=== PATIENT | male | born 1985 | race Caucasian/White ===

== ENCOUNTER 2019-04-29 12:30 | Emergency (ER) | payer OTHER ==
--- NOTE | 2019-04-29 13:14 | EDPHYS ---
Physician Documentation [facility] Name: Adam Buchanan Age: 33 yrs Sex: Male : 1985 Arrival Date: 04/29/2019 Time: 12:33 Bed 25 Private MD: ED Physician Ricardo Madrigal HPI: 04/28 13:32 This 33 yrs old Male presents to ER via Ambulatory with complaints of Abscess snw - Mouth/tooth. 13:32 the patient presents with a swollen area of the left submandibular area and lower left snw first molar (#19) and lower left second molar (#18). Description: swollen. Onset: The symptoms/episode began/occurred gradually. Possible cause(s): dental caries. Associated signs and symptoms: Pertinent positives: swelling. Severity of symptoms: At their worst the symptoms were moderate. The patient has not experienced similar symptoms in the past. The patient has not recently seen a physician, appt tomorrow at 0900. Historical: - Allergies: 12:52 PENICILLINS; ca1 12:52 Pepto-Bismol; ca1 12:52 Kaopectate; ca1 - Home Meds: 12:52 None [Active]; ca1 - PMHx: 12:52 None; ca1 - PSHx: 12:52 None; ca1 - Immunization history:: Adult Immunizations up to date, Flu vaccine is not up to date. - Social history:: Smoking status: Patient reports the use of cigarette tobacco products, smokes one-half pack cigarettes per day, Reported history of juuling and/or vaping. ROS: 13:31 Constitutional: Negative for fever, chills, and weight loss, Eyes: Negative for injury, snw pain, redness, and discharge, Neck: Negative for injury, pain, and swelling, Cardiovascular: Negative for chest pain, palpitations, and edema, Respiratory: Negative for shortness of breath, cough, wheezing, and pleuritic chest pain, Abdomen/GI: Negative for abdominal pain, nausea, vomiting, diarrhea, and constipation, Back: Negative for injury and pain, : Negative for injury, bleeding, discharge, and swelling, MS/Extremity: Negative for injury and deformity, Skin: Negative for injury, rash, and discoloration, Neuro: Negative for headache, weakness, numbness, tingling, and seizure. 13:31 ENT: Positive for Teeth pain Exam: 13:21 Constitutional: This is a well developed, well nourished patient who is awake, alert, snw and in no acute distress. Head/Face: Normocephalic, atraumatic. Eyes: Pupils equal round and reactive to light, extra-ocular motions intact. Lids and lashes normal. Conjunctiva and sclera are non-icteric and not injected. Cornea within normal limits. Periorbital areas with no swelling, redness, or edema. Neck: Trachea midline, no thyromegaly or masses palpated, and no cervical lymphadenopathy. Supple, full range of motion without nuchal rigidity, or vertebral point tenderness. No Meningismus. Chest/axilla: Normal chest wall appearance and motion. Nontender with no deformity. No lesions are appreciated. Cardiovascular: Regular rate and rhythm with a normal S1 and S2. No gallops, murmurs, or rubs. Normal PMI, no JVD. No pulse deficits. Respiratory: Lungs have equal breath sounds bilaterally, clear to auscultation and percussion. No rales, rhonchi or wheezes noted. No increased work of breathing, no retractions or nasal flaring. Abdomen/GI: Soft, non-tender, with normal bowel sounds. No distension or tympany. No guarding or rebound. No evidence of tenderness throughout. Back: No spinal tenderness. No costovertebral tenderness. Full range of motion. Skin: Warm, dry with normal turgor. Normal color with no rashes, no lesions, and no evidence of cellulitis. MS/ Extremity: Pulses equal, no cyanosis. Neurovascular intact. Full, normal range of motion. Neuro: Awake and alert, GCS 15, oriented to person, place, time, and situation. Cranial nerves II-XII grossly intact. Motor strength 5/5 in all extremities. Sensory grossly intact. Cerebellar exam normal. Normal gait. Psych: Awake, alert, with orientation to person, place and time. Behavior, mood, and affect are within normal limits. 13:21 ENT: External ear(s): are unremarkable, Ear canal(s): are normal, TM's: are normal, Examination of the other ear shows no obvious abnormality, Mouth: is normal, Dental exam: dental caries, that is severe, diffusely, pain, that is moderate, specifically in the lower left second molar (#18) and lower left first molar (#19), edema to left mandible area. Vital Signs: 12:48 BP 130 / 87; Pulse 70; Resp 17 S; Temp 97.6(TE); Pulse Ox 98% on R/A; Weight 95.25 kg ca1 (R); Height 5 ft. 8 in. (172.72 cm) (R); Pain 8/10; 12:48 Body Mass Index 31.93 (95.25 kg, 172.72 cm) ca1 MDM: 13:04 Patient medically screened. snw 13:21 Data reviewed: vital signs, nurses notes. Data interpreted: Pulse oximetry: on room air snw is 98 %. Interpretation: normal. Counseling: I had a detailed discussion with the patient and/or guardian regarding: the historical points, exam findings, and any diagnostic results supporting the discharge/admit diagnosis, the presence of at least one elevated blood pressure reading (>120/80) during this emergency department visit, the need for outpatient follow up, to return to the emergency department if symptoms worsen or persist or if there are any questions or concerns that arise at home. Special discussion: I have referred the patient to see his PCP for further evaluation of high blood pressure. Based on the history and exam findings, there is no indication for further emergent testing or inpatient evaluation. I discussed with the patient/guardian the need to see a dentist for further evaluation of the symptoms. I discussed with the patient/guardian the need to see the primary care provider for further evaluation of the symptoms. Administered Medications: 13:17 Drug: Doxycycline 100 mg Route: PO; 13:28 Follow up: Response: No adverse reaction 13:17 Drug: Purdum 5 mg-325 mg 1 tabs Route: PO; 13:28 Follow up: Response: No adverse reaction Disposition: 14:42 Co-signature as Attending Physician, Ricardo Madrigal MD. rn Disposition: 04/29/19 13:10 Discharged to Home. Impression: Dental caries, Unspecified diseases of pulp and periapical tissues. - Condition is Stable. - Discharge Instructions: Dental Abscess, Dental Caries, Adult, Dental Pain, Diet and Dental Disease, Preventive Dental Care, Adult. - Prescriptions for Doxycycline Hyclate 100 mg Oral Tablet - take 1 tablet by ORAL route every 12 hours; 20 tablet. - Medication Reconciliation Form, Thank You Letter, Antibiotic Education, Prescription Opioid Use form. - Follow up: Emergency Department; When: As needed; Reason: Worsening of condition. Follow up: Private Physician; When: Tomorrow; Reason: Recheck today's complaints, Continuance of care, Re-evaluation by your physician. Signatures: Wendy Dunn, AG SERVICE MANAGER-C AG SERVICE MANAGER-Csnw Ricardo Madrigal MD MD rn Habalo, Winsy wh Acob, Cheryl, RN RN ca1 Corrections: (The following items were deleted from the chart) 13:28 13:10 04/29/2019 13:10 Discharged to Home. Impression: Dental caries; Unspecified wh diseases of pulp and periapical tissues. Condition is Stable. Forms are Medication Reconciliation Form, Thank You Letter, Antibiotic Education, Prescription Opioid Use. Follow up: Emergency Department; When: As needed; Reason: Worsening of condition. Follow up: Private Physician; When: Tomorrow; Reason: Recheck today's complaints, Continuance of care, Re-evaluation by your physician. snw 13:32 13:21 ENT: External ear(s): are unremarkable, Ear canal(s): are normal, TM's: are snw normal, Examination of the other ear shows no obvious abnormality, Mouth: is normal, Dental exam: dental caries, that is severe, diffusely, pain, that is moderate, specifically in the lower left second molar (#18) and lower left first molar (#19), snw
--- NOTE | 2019-04-29 13:14 | ER ---
Nurse's Notes [facility] Name: Adam Buchanan Age: 33 yrs Sex: Male : 1985 Arrival Date: 04/29/2019 Time: 12:33 Bed 25 Private MD: Diagnosis: Dental caries;Unspecified diseases of pulp and periapical tissues Presentation: 04/28 12:48 Chief complaint: Patient states: Tooth abscess for 3 days. Pain and swelling on L side ca1 of face. Denies fever. Coronavirus screen: Patient denies fever greater than 100.4F, cough, shortness of breath, or difficulty breathing. Proceed with normal triage process. Ebola Screen: Patient negative for fever greater than or equal to 101.5 degrees Fahrenheit, and additional compatible Ebola Virus Disease symptoms Patient denies exposure to infectious person. Patient denies travel to an Ebola-affected area in the 21 days before illness onset. No symptoms or risks identified at this time. Initial Sepsis Screen: Does the patient meet any 2 criteria? No. Patient's initial sepsis screen is negative. Does the patient have a suspected source of infection? No. Patient's initial sepsis screen is negative. Risk Assessment: Do you want to hurt yourself or someone else? Patient reports no desire to harm self or others. Onset of symptoms was April 29, 2019. 12:48 Method Of Arrival: Ambulatory ca1 12:48 Acuity: BERTHA 4 ca1 Historical: - Allergies: 12:52 PENICILLINS; ca1 12:52 Pepto-Bismol; ca1 12:52 Kaopectate; ca1 - Home Meds: 12:52 None [Active]; ca1 - PMHx: 12:52 None; ca1 - PSHx: 12:52 None; ca1 - Immunization history:: Adult Immunizations up to date, Flu vaccine is not up to date. - Social history:: Smoking status: Patient reports the use of cigarette tobacco products, smokes one-half pack cigarettes per day, Reported history of juuling and/or vaping. Screenin:26 Abuse screen: Denies threats or abuse. Denies injuries from another. Nutritional wh screening: No deficits noted. Tuberculosis screening: No symptoms or risk factors identified. Fall Risk None identified. Assessment: 13:00 General: Appears in no apparent distress. Behavior is calm, cooperative, appropriate wh for age. Pain: Complains of pain in left side of mouth. Neuro: Level of Consciousness is awake, alert, obeys commands, Oriented to person, place, time, situation, Appropriate for age. Cardiovascular: Capillary refill < 3 seconds. Respiratory: Airway is patent Respiratory effort is even, unlabored, Respiratory pattern is regular, symmetrical. GI: Abdomen is flat, non-distended. : No signs and/or symptoms were reported regarding the genitourinary system. EENT: Poor dentition noted. Dental caries noted in lower left second molar (#18). Derm: Skin is intact, is healthy with good turgor, Skin is pink, warm \T\ dry. normal. Musculoskeletal: Circulation, motion, and sensation intact. Vital Signs: 12:48 BP 130 / 87; Pulse 70; Resp 17 S; Temp 97.6(TE); Pulse Ox 98% on R/A; Weight 95.25 kg ca1 (R); Height 5 ft. 8 in. (172.72 cm) (R); Pain 8/10; 12:48 Body Mass Index 31.93 (95.25 kg, 172.72 cm) ca1 ED Course: 01:00 Patient has correct armband on for positive identification. Bed in low position. Call wh light in reach. Side rails up X 1. Pulse ox on. NIBP on. 12:33 Patient arrived in ED. am2 12:44 [facility]-C [facility]. snw 12:44 Ricardo Madrigal MD is Attending Physician. snw 12:50 Triage completed. ca1 12:52 Arm band placed on right wrist. ca1 13:11 Zaheer Vieira is Primary Nurse. 13:27 No provider procedures requiring assistance completed. Patient did not have IV access during this emergency room visit. Administered Medications: 13:17 Drug: Doxycycline 100 mg Route: PO; wh 13:28 Follow up: Response: No adverse reaction wh 13:17 Drug: Boscobel 5 mg-325 mg 1 tabs Route: PO; wh 13:28 Follow up: Response: No adverse reaction Outcome: 13:10 Discharge ordered by . snw 13:27 Discharged to home ambulatory. wh 13:27 Condition: stable 13:27 Discharge instructions given to patient, Instructed on discharge instructions, follow up and referral plans. medication usage, POC Demonstrated understanding of instructions, follow-up care, medications, POC Prescriptions given X 1. 13:28 Patient left the ED. Signatures: Wendy Dunn, SOFTWARE TESTING SPECIALIST-C SOFTWARE TESTING SPECIALIST-Csnw Gillian Kothari Winsy Kianna Leonard, RN RN ca1
[2019-04-29] MEDS ORDERED: HYDROCODONE/APAP 5/325 MG TAB ONE (13:19)
[2019-04-29] MEDS ORDERED: DOXYCYCLINE 100 MG CAP PO ONE (13:19)
[2019-04-29 13:42] VITALS: BP 130/87; TEMP 97.6; O2SAT 98
== END 2019-04-29 13:28 | disposition home or self-care (01) ==
LOC: ER 12:30
DX: K04.90 Unspecified diseases of pulp and periapical tissues (principal); F17.210 Nicotine dependence, cigarettes, uncomplicated; Z88.0 Allergy status to penicillin; Z88.8 Allergy status to other drugs, medicaments and biological substances
CPT/HCPCS: 99283

== ENCOUNTER 2019-04-29 19:07 | Emergency (ER) | payer OTHER ==
[2019-04-29] MEDS ORDERED: MEPERIDINE HCL 50 MG/ML ONE (20:03)
[2019-04-29] MEDS ORDERED: CLINDAMYCIN 900MG/D5W 900 MG/50 ML IVPB IV ONE (20:03)
[2019-04-29] MEDS ORDERED: ONDANSETRON 4 MG/2 ML VIAL ONE (20:03)
[2019-04-29] MEDS ORDERED: NA CHLORIDE 0.9% 1,000 ML ONE (20:03)
[2019-04-29 20:26] LABS: Absolute Lymphocytes (CBC) 1.9 K/uL (0.7-4.9); Basophils % 0.6 % (0-1.3); Hematocrit 46.1 % (39.6-49.0); Lymphocytes % 14.6 % (15.3-44.8); RBC Red Blood Cell Count 5.11 M/uL (4.33-5.43)
[2019-04-29 20:34] LABS: Potassium 4.1 mmol/L (3.5-5.1)
--- NOTE | 2019-04-29 21:18 | ER ---
Nurse's Notes [facility] Name: Adam Buchanan Age: 33 yrs Sex: Male : 1985 Arrival Date: 04/29/2019 Time: 19:09 Bed 19 Private MD: Diagnosis: Dental abscess. Cellulitis left cheek Presentation: 04/28 19:12 Chief complaint: Patient states: was here earlier today for the same thing but it has ca1 gotten worse. the pain has gone to my L ear, L cheek bone, whole L side of face. Coronavirus screen: Patient denies fever greater than 100.4F, cough, shortness of breath, or difficulty breathing. Proceed with normal triage process. Ebola Screen: Patient negative for fever greater than or equal to 101.5 degrees Fahrenheit, and additional compatible Ebola Virus Disease symptoms Patient denies exposure to infectious person. Patient denies travel to an Ebola-affected area in the 21 days before illness onset. No symptoms or risks identified at this time. Initial Sepsis Screen: Does the patient meet any 2 criteria? No. Patient's initial sepsis screen is negative. Does the patient have a suspected source of infection? No. Patient's initial sepsis screen is negative. Risk Assessment: Do you want to hurt yourself or someone else? Patient reports no desire to harm self or others. Onset of symptoms was April 29, 2019. 19:12 Method Of Arrival: Ambulatory ca1 19:12 Acuity: BERTHA 5 ca1 Historical: - Allergies: 19:14 Kaopectate; ca1 19:14 PENICILLINS; ca1 19:14 Pepto-Bismol; ca1 - Home Meds: 19:14 None [Active]; ca1 - PMHx: 19:14 None; ca1 - PSHx: 19:14 None; ca1 - Immunization history:: Adult Immunizations up to date, Flu vaccine is not up to date. - Social history:: Smoking status: Patient reports the use of cigarette tobacco products, smokes one-half pack cigarettes per day. Screenin:42 Abuse screen: Denies threats or abuse. Nutritional screening: No deficits noted. Tuberculosis screening: No symptoms or risk factors identified. Fall Risk None identified. Assessment: 19:34 General: Appears distressed, uncomfortable, Behavior is cooperative, Reports he had ah tooth pulled 6 months ago and feels like there are little pieces still in there. He states that he has a dentist appt in the morning. Pain: Complains of pain in left bottom tooth, left jaw and cheek Pain radiates to left ear Pain at worst was 10 out of 10 on a pain scale. Quality of pain is described as shooting, throbbing, Pain began 4 days ago Also complains of unable to eat, cold makes it worse. Neuro: Level of Consciousness is awake, alert, Oriented to person, place, time, situation. Cardiovascular: Heart tones S1 S2 Capillary refill < 3 seconds Patient's skin is warm and dry. Respiratory: Airway is patent Respiratory effort is even, unlabored, Respiratory pattern is regular, symmetrical, Breath sounds are clear bilaterally. GI: Patient currently denies nausea, vomiting. : No signs and/or symptoms were reported regarding the genitourinary system. EENT: left jaw with redness and swelling. Denies difficulty swallowing. Derm: Abscess located on left jaw is red, toothache x4 days. Musculoskeletal: No signs and/or symptoms reported regarding the musculoskeletal system. 20:31 Reassessment: Patient and/or family updated on plan of care and expected duration. Pain ea level reassessed. Patient is alert, oriented x 3, equal unlabored respirations, skin warm/dry/pink. Pt reports pain has improved. Vital Signs: 19:12 BP 134 / 87; Pulse 77; Resp 15 S; Temp 97.2(TE); Pulse Ox 98% on R/A; Weight 99.79 kg ca1 (R); Height 5 ft. 8 in. (172.72 cm) (R); Pain 10/10; 20:32 BP 171 / 89; Pulse 80; Resp 18; Pulse Ox 99% ; ea 21:25 BP 147 / 94; Pulse 74; Resp 17; Pulse Ox 100% ; ah 19:12 Body Mass Index 33.45 (99.79 kg, 172.72 cm) ca1 ED Course: 19:09 Patient arrived in ED. cf2 19:14 Triage completed. ca1 19:14 Arm band placed on right wrist. ca1 19:16 Mary Cruz RN is Primary Nurse. ea 19:39 Jerrell Claire MD is Attending Physician. pkl 19:42 Patient has correct armband on for positive identification. Bed in low position. Call light in reach. Side rails up X 1. 20:15 Inserted saline lock: 20 gauge in left antecubital area, using aseptic technique. Blood oe collected. 21:27 No provider procedures requiring assistance completed. IV discontinued, intact, ah bleeding controlled, No redness/swelling at site. Pressure dressing applied. Administered Medications: 00:15 Drug: NS 0.9% 1000 ml Route: IV; Rate: 1000 ml; Site: left antecubital; ea 21:24 Follow up: Response: No adverse reaction; IV Status: Completed infusion; IV Intake: ah 1000ml 20:10 Drug: Clindamycin 900 mg Route: IVPB; Infused Over: 30 mins; Site: left antecubital; ea 21:24 Follow up: Response: No adverse reaction 20:12 Drug: Demerol 50 mg Route: IVP; Site: left antecubital; ea 21:24 Follow up: Response: No adverse reaction; Pain is decreased; RASS: Drowsy (-1) 20:14 Drug: Zofran (Ondansetron) 4 mg Route: IVP; Site: left antecubital; ea 21:24 Follow up: Response: No adverse reaction Intake: 21:24 IV: 1000ml; Total: 1000ml. Outcome: 21:16 Discharge ordered by . pkvioleta 21:27 Discharged to home ambulatory. 21:27 Condition: stable 21:27 Discharge instructions given to patient, Instructed on discharge instructions, follow up and referral plans. medication usage, Demonstrated understanding of instructions, follow-up care, medications, Prescriptions given X 2. 21:28 Patient left the ED. Signatures: Jerrell Claire MD MD pkl Espinosa, Orlando oe Antunez, Elena, RN RN ea Acob, Cheryl RN SIMEON [facility] [place] [address] RN SIMEON
--- NOTE | 2019-04-29 21:18 | EDPHYS ---
Physician Documentation [facility] Name: Adam Buchanan Age: 33 yrs Sex: Male : 1985 Arrival Date: 04/29/2019 Time: 19:09 Bed 19 Private MD: ED Physician Jerrell Claire HPI: 04/28 19:57 This 33 yrs old Male presents to ER via Ambulatory with complaints of Abscess.pkl 19:59 The patient presents with broken tooth/teeth, pain, swelling. The problem is located in pkl the left jaw. Onset: The symptoms/episode began/occurred 4 day(s) ago, and became worse today. Associated signs and symptoms: Pertinent positives: pain, swelling, left cheek. The patient has been recently seen at the [facility] Emergency Department, today, for similar complaints was given a prescription for antibiotics. Patient said he was seen earlier in the ER given Doxycycline. Said pain is getting worse and he has no pain medications. Patient said he has appointment with the Dentist in the morning. Historical: - Allergies: 19:14 Kaopectate; ca1 19:14 PENICILLINS; ca1 19:14 Pepto-Bismol; ca1 - Home Meds: 19:14 None [Active]; ca1 - PMHx: 19:14 None; ca1 - PSHx: 19:14 None; ca1 - Immunization history:: Adult Immunizations up to date, Flu vaccine is not up to date. - Social history:: Smoking status: Patient reports the use of cigarette tobacco products, smokes one-half pack cigarettes per day. ROS: 19:59 Eyes: Negative for injury, pain, redness, and discharge. pkl 19:59 ENT: Positive for dental pain, of the left jaw. 19:59 Neck: Negative for stiffness. 19:59 Cardiovascular: Negative for chest pain. 19:59 Respiratory: Negative for cough, shortness of breath. 19:59 Abdomen/GI: Negative for abdominal pain, nausea, vomiting, and diarrhea. 19:59 Back: Negative for acute changes. 19:59 : Negative for urinary symptoms. 19:59 MS/extremity: Negative for acute changes. 19:59 Skin: Negative for rash. 19:59 Neuro: Negative for altered mental status, loss of consciousness. Exam: 19:59 Eyes: Pupils equal round and reactive to light, extra-ocular motions intact. Lids and pkl lashes normal. Conjunctiva and sclera are non-icteric and not injected. Cornea within normal limits. Periorbital areas with no swelling, redness, or edema. 19:59 Head/face: Noted is swelling, that is mild, tenderness, that is mild, of the left cheek. 19:59 ENT: Dental exam: abscess, that is mild, gum swelling, specifically in the lower left second molar (#18). 19:59 Neck: Exam negative for nuchal rigidity. 19:59 Chest/axilla: Exam negative for acute changes. 19:59 Cardiovascular: Rate: normal, Rhythm: regular. 19:59 Respiratory: the patient does not display signs of respiratory distress, Respirations: normal, Breath sounds: are clear throughout. 19:59 Abdomen/GI: Bowel sounds: normal, Palpation: abdomen is soft and non-tender, in all quadrants. 19:59 Back: Exam negative for acute changes. 19:59 : Exam negative for acute changes. 19:59 Musculoskeletal/extremity: Exam is negative for acute changes. 19:59 Skin: Exam negative for rash. 19:59 Neuro: Orientation: is normal, Mentation: is normal, Cranial nerves: grossly normal, Motor: is normal. Vital Signs: 19:12 BP 134 / 87; Pulse 77; Resp 15 S; Temp 97.2(TE); Pulse Ox 98% on R/A; Weight 99.79 kg ca1 (R); Height 5 ft. 8 in. (172.72 cm) (R); Pain 10/10; 20:32 BP 171 / 89; Pulse 80; Resp 18; Pulse Ox 99% ; ea 21:25 BP 147 / 94; Pulse 74; Resp 17; Pulse Ox 100% ; ah 19:12 Body Mass Index 33.45 (99.79 kg, 172.72 cm) ca1 MDM: 19:39 Patient medically screened. pkl 21:14 Data reviewed: vital signs, nurses notes, lab test result(s). ED course: Advised to pkl keep appt. with Dentist in the morning. Patient understood instructions. 04/28 19:55 Order name: CBC with Diff pkl 04/28 19:55 Order name: Chem 7 pkl 04/28 20:30 Order name: CBC with Automated Diff; Complete Time: 21:12 EDMS 04/28 20:35 Order name: Basic Metabolic Panel; Complete Time: 21:12 EDDE Administered Medications: 00:15 Drug: NS 0.9% 1000 ml Route: IV; Rate: 1000 ml; Site: left antecubital; ea 21:24 Follow up: Response: No adverse reaction; IV Status: Completed infusion; IV Intake: ah 1000ml 20:10 Drug: Clindamycin 900 mg Route: IVPB; Infused Over: 30 mins; Site: left antecubital; ea 21:24 Follow up: Response: No adverse reaction 20:12 Drug: Demerol 50 mg Route: IVP; Site: left antecubital; ea 21:24 Follow up: Response: No adverse reaction; Pain is decreased; RASS: Drowsy (-1) 20:14 Drug: Zofran (Ondansetron) 4 mg Route: IVP; Site: left antecubital; ea 21:24 Follow up: Response: No adverse reaction Disposition: 04/29/19 21:16 Discharged to Home. Impression: Dental abscess. Cellulitis left cheek. - Condition is Stable. - Prescriptions for Clindamycin HCl 300 mg Oral Capsule - take 1 capsule by ORAL route every 6 hours for 7 days; 28 capsule. Ultram 50 mg Oral Tablet - take 1 tablet by ORAL route every 8 hours As needed; 12 tablet. - Medication Reconciliation Form, Thank You Letter, Antibiotic Education, Prescription Opioid Use form. - Follow up: Private Physician; When: Tomorrow; Reason: Re-evaluation by your physician. - Problem is new. - Symptoms are unchanged. Signatures: Dispatcher [employer] [facility] Jerrell Claire MD MD pkl Antunez, Elena, RN RN ea Acob, Cheryl RN [facility] Pam Spaulding RN SIMEON Corrections: (The following items were deleted from the chart) 21:28 21:16 04/29/2019 21:16 Discharged to Home. Impression: Dental abscess. Cellulitis left ah cheek. Condition is Stable. Forms are Medication Reconciliation Form, Thank You Letter, Antibiotic Education, Prescription Opioid Use. Follow up: Private Physician; When: Tomorrow; Reason: Re-evaluation by your physician. Problem is new. Symptoms are unchanged. pkl
[2019-04-29 21:50] VITALS: TEMP 97.2
[2019-04-29 21:53] VITALS: BP 147/94; O2SAT 100
== END 2019-04-29 21:28 | disposition home or self-care (01) ==
LOC: ER 19:07
DX: K04.7 Periapical abscess without sinus (principal); L03.211 Cellulitis of face; F17.210 Nicotine dependence, cigarettes, uncomplicated; Z88.0 Allergy status to penicillin; Z88.8 Allergy status to other drugs, medicaments and biological substances
CPT/HCPCS: 96361; 85025; 80048; 36415; 96375; 96374; 99284; J2175; J7030; J2405

== ENCOUNTER 2022-06-23 05:32 | Emergency (ER) | payer OTHER ==
[2022-06-23] MEDS ORDERED: CLINDAMYCIN 900MG/D5W 900 MG/50 ML IVPB IV ONE (06:00)
--- NOTE | 2022-06-23 06:01 | ER ---
Nurse's Notes [facility] Name: Adam Buchanan Age: 37 yrs Sex: Male : 1985 Arrival Date: 06/23/2022 Time: 05:32 Bed 15 Private MD: Diagnosis: Dental caries with local swelling Presentation: 06/23 05:40 Chief complaint: Patient states: right jaw pain and swelling began on Monday. Coronavirus screen: Vaccine status: Patient reports being unvaccinated. Ebola Screen: Patient negative for fever greater than or equal to 101.5 degrees Fahrenheit, and additional compatible Ebola Virus Disease symptoms. Initial Sepsis Screen: Does the patient meet any 2 criteria? No. Patient's initial sepsis screen is negative. Does the patient have a suspected source of infection? No. Patient's initial sepsis screen is negative. Risk Assessment: Do you want to hurt yourself or someone else? Patient reports no desire to harm self or others. Onset of symptoms was June 20, 2022. 05:40 Method Of Arrival: Ambulatory 05:44 Note pt reportshas seen dentist but unable to afford tooth extraction. 05:45 Acuity: BERTHA 3 kl Triage Assessment: 05:42 General: Appears distressed, uncomfortable, Behavior is cooperative. Pain: Complains of kl pain in right ear and right jaw Pain currently is 9 out of 10 on a pain scale. EENT: Good dentition noted. swlling noted to right jaw . Neuro: No deficits noted. Cardiovascular: No deficits noted. Respiratory: No deficits noted. Airway is patent Trachea midline Respiratory effort is even, unlabored, Respiratory pattern is regular, symmetrical. GI: No deficits noted. No signs and/or symptoms were reported involving the gastrointestinal system. : No deficits noted. No signs and/or symptoms were reported regarding the genitourinary system. Derm: No deficits noted. No signs and/or symptoms reported regarding the dermatologic system. Musculoskeletal: No deficits noted. No signs and/or symptoms reported regarding the musculoskeletal system. Historical: - Allergies: 05:42 Kaopectate; kl 05:42 PENICILLINS; kl 05:42 Pepto-Bismol; kl - Home Meds: 05:42 None [Active]; kl - PMHx: 05:42 None; kl - PSHx: 05:42 None; kl - Immunization history:: Adult Immunizations not immunized. - Social history:: Smoking status: Patient reports the use of cigarette tobacco products. Screenin:02 [facility] ED Fall Risk Assessment (Adult) History of falling in the last 3 months, including since admission No falls in past 3 months (0 pts) Confusion or Disorientation No (0 pts) Intoxicated or Sedated No (0 pts) Impaired Gait No (0 pts) Mobility Assist Device Used No (0 pt) Altered Elimination No (0 pt) Score/Fall Risk Level 0 - 2 = Low Risk. Abuse screen: Denies threats or abuse. Nutritional screening: No deficits noted. Tuberculosis screening: No symptoms or risk factors identified. Assessment: 06:01 Reassessment: No changes from previously documented assessment. Vital Signs: 05:40 BP 159 / 96; Pulse 92; Resp 18; Temp 98.1(O); Pulse Ox 98% on R/A; Weight 111.13 kg; kl Height 5 ft. 7 in. ; Pain 9/10; 06:01 BP 145 / 103; Pulse 78; Pulse Ox 93% ; kl 06:28 BP 136 / 90; Pulse Ox 94% ; kl 05:40 Body Mass Index 38.37 (111.13 kg, 170.18 cm) kl 05:40 Pain Scale: Adult ED Course: 05:36 Patient arrived in ED. ja2 05:42 Triage completed. kl 05:45 Asaf Kulkarni MD is Attending Physician. sp3 06:01 No provider procedures requiring assistance completed. Inserted saline lock: 22 gauge kl in right antecubital area, using aseptic technique. 06:02 Patient has correct armband on for positive identification. Bed in low position. Call kl light in reach. 06:28 No apparent distress. Resting quietly. Appears to be sleeping. kl 06:34 IV discontinued, intact, bleeding controlled, No redness/swelling at site. Pressure kl dressing applied. Administered Medications: 06:01 Drug: Clindamycin IVPB 900 mg Route: IVPB; Infused Over: 30 mins; Site: right kl antecubital; 06:34 Follow up: IV Status: Completed infusion; IV Intake: 50ml kl 06:01 Drug: Ketorolac IVP 30 mg Route: IVP; Site: right antecubital; kl 06:27 Follow up: Response: No adverse reaction; Pain is decreased kl Intake: 06:34 IV: 50ml; Total: 50ml. kl Outcome: 06:00 Discharge ordered by sp3 06:35 Discharged to home ambulatory. 06:35 Condition: improved 06:35 Discharge instructions given to patient, Instructed on discharge instructions, follow up and referral plans. medication usage, Demonstrated understanding of instructions, follow-up care, medications, Prescriptions given X 2. 06:35 Patient left the ED. Signatures: Lia Cuellar RN RN Asaf Ruffin MD MD sp3 Rica Knight Corrections: (The following items were deleted from the chart) 05:44 05:40 Acuity: BERTHA 3 kl kl 05:45 05:44 Acuity: BERTHA 4 kl kl
--- NOTE | 2022-06-23 06:01 | EDPHYS ---
Physician Documentation [facility] Name: Adam Buchanan Age: 37 yrs Sex: Male : 1985 Arrival Date: 06/23/2022 Time: 05:32 Bed 15 Private MD: ED Physician Asaf Kulkarni HPI: 06/23 05:56 This 37 yrs old Male presents to ER via Ambulatory with complaints of Jaw Pain. sp3 05:56 37-year-old male with a history of dental caries and penicillin allergy now presents sp3 with right-sided jaw pain and mandibular pain as well as jaw swelling. Patient was seen at a dentist a few days ago and he states that he does not have enough money to cover his dental needs. He presents today asking for antibiotics and pain medication until he can be seen in another dental clinic. Swelling is increased over the last 24 hours and comprises the right side of his mandibular jaw region and jaw. He denies airway difficulty or inability to swallow. Also denies fever, headache, neck pain, shortness of breath, chest pain or any other signs or symptoms on review of systems at this time.. Historical: - Allergies: 05:42 Kaopectate; kl 05:42 PENICILLINS; kl 05:42 Pepto-Bismol; kl - Home Meds: 05:42 None [Active]; kl - PMHx: 05:42 None; kl - PSHx: 05:42 None; kl - Immunization history:: Adult Immunizations not immunized. - Social history:: Smoking status: Patient reports the use of cigarette tobacco products. ROS: 05:57 Constitutional: Negative for fever, chills, and weight loss, Eyes: Negative for injury, sp3 pain, redness, and discharge, Cardiovascular: Negative for chest pain, palpitations, and edema, Respiratory: Negative for shortness of breath, cough, wheezing, and pleuritic chest pain, Abdomen/GI: Negative for abdominal pain, nausea, vomiting, diarrhea, and constipation, Back: Negative for injury and pain, Neuro: Negative for headache, weakness, numbness, tingling, and seizure. 05:57 All other systems are negative. Exam: 05:58 Constitutional: This is a well developed, well nourished patient who is awake, alert, sp3 and in no acute distress. Eyes: Pupils equal round and reactive to light, extra-ocular motions intact. Lids and lashes normal. Conjunctiva and sclera are non-icteric and not injected. Cornea within normal limits. Periorbital areas with no swelling, redness, or edema. Neck: Trachea midline, no thyromegaly or masses palpated, and no cervical lymphadenopathy. Supple, full range of motion without nuchal rigidity, or vertebral point tenderness. No Meningismus. Chest/axilla: Normal chest wall appearance and motion. Nontender with no deformity. No lesions are appreciated. Cardiovascular: Regular rate and rhythm with a normal S1 and S2. No gallops, murmurs, or rubs. Normal PMI, no JVD. No pulse deficits. Respiratory: Lungs have equal breath sounds bilaterally, clear to auscultation and percussion. No rales, rhonchi or wheezes noted. No increased work of breathing, no retractions or nasal flaring. Abdomen/GI: Soft, non-tender, with normal bowel sounds. No distension or tympany. No guarding or rebound. No evidence of tenderness throughout. Skin: Warm, dry with normal turgor. Normal color with no rashes, no lesions, and no evidence of cellulitis. MS/ Extremity: Pulses equal, no cyanosis. Neurovascular intact. Full, normal range of motion. Neuro: Awake and alert, GCS 15, oriented to person, place, time, and situation. Cranial nerves II-XII grossly intact. Motor strength 5/5 in all extremities. Sensory grossly intact. Cerebellar exam normal. Normal gait. 05:58 ENT: Poor dentition throughout oral cavity particularly in the right mandibular area. Swelling noted on the right side of the face extending to the TMJ region. No airway compromise, uvular shift, inability to handle secretions, change in voice, or any other concerning findings noted.. Vital Signs: 05:40 BP 159 / 96; Pulse 92; Resp 18; Temp 98.1(O); Pulse Ox 98% on R/A; Weight 111.13 kg; kl Height 5 ft. 7 in. ; Pain 9/10; 06:01 BP 145 / 103; Pulse 78; Pulse Ox 93% ; kl 06:28 BP 136 / 90; Pulse Ox 94% ; kl 05:40 Body Mass Index 38.37 (111.13 kg, 170.18 cm) kl 05:40 Pain Scale: Adult kl MDM: 05:54 Patient medically screened. sp3 05:58 Data reviewed: vital signs, nurses notes. ED course: We will give IV clindamycin and sp3 ketorolac for symptomatic and initial treatment. Patient will be discharged home on p.o. clindamycin and p.o. diclofenac. I strongly urged patient to find an appropriate dentist and seek further dental care. Patient knows he can return for any changes in ability to handle secretions, concerns of airway, or any other concerns he may have or any future emergency he may deem necessary.. 06/23 05:54 Order name: IV sp3 Administered Medications: 06:01 Drug: Clindamycin IVPB 900 mg Route: IVPB; Infused Over: 30 mins; Site: right kl antecubital; 06:34 Follow up: IV Status: Completed infusion; IV Intake: 50ml kl 06:01 Drug: Ketorolac IVP 30 mg Route: IVP; Site: right antecubital; kl 06:27 Follow up: Response: No adverse reaction; Pain is decreased kl Disposition Summary: 06/23/22 06:00 Discharge Ordered Location: Home sp3 Condition: Stable sp3 Diagnosis - Dental caries with local swelling sp3 Followup: sp3 - With: Private Physician - When: Upon discharge from the Emergency Department - Reason: Recheck today's complaints, Continuance of care Discharge Instructions: - Discharge Summary Sheet sp3 - Dental Abscess sp3 - Dental Caries, Adult sp3 Forms: - Medication Reconciliation Form sp3 - Thank You Letter sp3 - Antibiotic Education sp3 - Prescription Opioid Use sp3 Prescriptions: - Clindamycin HCl 300 mg Oral Capsule - take 1 capsule by ORAL route every 6 hours for 10 days; 40 capsule; Refills: 0, sp3 Product Selection Permitted - Diclofenac Sodium 75 mg Oral Tablet Sustained Release - take 1 tablet by ORAL route 2 times per day; 30 tablet; Refills: 0, Product sp3 Selection Permitted Signatures: Lia Cuellar RN RN kl Patel, Setul, MD MD sp3
[2022-06-23] MEDS ORDERED: KETOROLAC 30 MG/ML INJ ONE (06:03)
[2022-06-23 06:40] VITALS: TEMP 98.1
[2022-06-23 06:43] VITALS: BP 136/90; O2SAT 94
== END 2022-06-23 06:35 | disposition home or self-care (01) ==
LOC: ER 05:32
DX: K02.9 Dental caries, unspecified (principal); Z72.0 Tobacco use; Z88.0 Allergy status to penicillin; Z88.8 Allergy status to other drugs, medicaments and biological substances
CPT/HCPCS: 96365; 96375; 99284